=== PATIENT | male | born 1940 | race Caucasian/White ===

== ENCOUNTER 2017-03-15 17:12 | Observation (INO) | payer MEDICARE ==
[2017-03-15 17:44] LABS: BASOPHIL# 0.1 X 10^3uL (0.0-0.1); BASOPHILS 0.9 % (0.0-2.0); EOSINOPHILS 0.9 % (0.0-6.0); EOSINOPHILS# 0.1 X 10^3uL (0.0-0.4); HEMOGLOBIN 15.5 g/dL (14.0-18.0); LYMPHOCYTES# 2.5 X 10^3uL (0.8-3.8); MEAN CELL VOLUME 96.6 fL (80.0-100.0); MEAN CORPUS. HGB CONCENTRATION 34.4 g/dL (32.0-36.0); MEAN CORPUSCULAR HEMOGLOBIN 33.2 pg (29.0-35.0); MEAN PLATELET VOLUME 7.6 fL (7.4-10.4); MONOCYTES 8.8 % (2.0-10.0); MONOCYTES# 0.6 X 10^3uL (0.2-1.0); NEUTROPHILS 55.4 % (54.0-75.0); RED BLOOD COUNT 4.66 X 10^6uL (4.20-6.10); RED CELL DISTRIBUTION WIDTH 12.7 % (11.5-14.5); WHITE BLOOD COUNT 7.3 X 10^3uL (3.9-10.7)
[2017-03-15 17:48] LABS: CALCIUM 9.9 mg/dL (8.4-10.2); POTASSIUM 4.2 mmol/L (3.5-5.1)
[2017-03-15 17:49] LABS: INR 3.3
--- NOTE | 2017-03-15 18:21 | CT REPORT ---
HISTORY: Fall, no LOC COMPARISON: None. TECHNIQUE: Axial non-contrast images obtained from skull vertex through foramen magnum. Dose reduction technique was utilized. FINDINGS: BRAIN: There is age related atrophy. No acute intracranial hemorrhage. No mass effect or hydrocephalus. T here is no CT evidence of infarction. BONES AND EXTRACRANIAL SOFT TISSUES: There has been prior cataract surgery. The paranasal sinuses and mastoid air cells are clear. The ca lvarium is intact. IMPRESSION: 1. No acute intracranial abnormality. 2. Age related atrophy. Final Electronic Signature: This report was electronically signed by Otis Zaragoza MD on 03/15/2017 6:18 PM. all /
--- NOTE | 2017-03-15 18:22 | CT REPORT ---
HISTORY: Trauma, fall COMPARISON: None. TECHNIQUE: This examination was performed using automated exposure control, adjustment of mA or kV according to patient size, and/or use of iterative reconstruction technique. Axial thin section images obtained f rom skull base through head of the clavicles. Sagittal and coronal reformat images obtained. FINDINGS: Craniocervical junction is intact. Mild straightening of the cervical spine. Vertebral body height is preserved. Mild grade 1 anterolisthesis of C3 over C4. Alignment is otherwise preserved. C5-C6 and C 6-C7 disc height loss related to degenerative disc disease. Multilevel facet arthrosis. No high-grade spinal canal stenosis. Mild to moderate multilevel foraminal stenosis. Apical scarring noted in the right lung apex. IMPRESSION: 1. No acute abnormality. 2. Multilevel degenerative changes. Final Electronic Signature: This report was electronically signed by Otis Zaragoza MD on 03/15/2017 6:20 PM. all /
--- NOTE | 2017-03-15 19:15 | RADIOLOGY REPORT ---
A limited single portable view of the chest is compared with prior examination dated 05/08/2016. The heart and vessels are stable. Stable left sided pacemaker is noted. Stable scarring is seen in both lung atwood, right greater than left. No infiltrate, fluid or pneumothorax is identified. IMPRESSION: Stable chronic changes as described. MTDD
--- NOTE | 2017-03-15 19:17 | RADIOLOGY REPORT ---
Four views of the lumbar spine without prior films for comparison demonstrate 50 % anterior compression deformity of L2. No encroachment upon the spinal canal is identified. The remainder of the vertebral body heights are maintained. Disk spaces appear unremarkable. Calcification of the abdominal aorta is noted without aneurysm identified. IMPRESSION: A 50% anterior compression deformity of L2 of indeterminate age. If clinically indicated further evaluation with CT scanning and/or MRI scanning may be of benefit. MTDD
[2017-03-15] MEDS ORDERED: HOME MEDICATION LIST NEEDED 1 EA EACH MISC ONE (20:02)
[2017-03-15] MEDS ORDERED: ACETAMINOPHEN 325 MG TABLET PO PRN (20:02)
[2017-03-15] MEDS ORDERED: ONDANSETRON HCL 4 MG/2 ML VIAL IV PRN (20:07)
[2017-03-15] MEDS ORDERED: NORMAL SALINE 1,000 ML IV SCH (21:00)
--- NOTE | 2017-03-15 21:43 | ER NURSING DOCUMENTATION ---
Nurse's Notes [facility] Name:Juan Pablo Guillermo Age:76 yrs Sex:Male :1940 Arrival Date:03/15/2017 Time:17:12 Bed4 Private MD:Mervat Nava Diagnosis:Lumbar Vertebra Fracture w/o Spinal Cord Injury-: 50% Acute L-2 Vertebral Body Compression Fracture;Closed Head Injury w/o Cranial Wound, Unspec State LOC Presentation: 03/15 17:18 Presenting complaint: Patient states: Fall. Transition of care: Home. lp 17:18 Acuity: RUBIA 3 lp 17:18 Method Of Arrival: Private Vehicle lp Triage Assessment: 17:26 General: Appears in no apparent distress, Behavior is cooperative. Pain: Complains of rh pain in back. EENT: Oral mucosa is dry. Neuro: Level of Consciousness is awake, alert, obeys commands. Cardiovascular: Capillary refill < 3 seconds. Respiratory: Airway is patent Respiratory effort is even, labored, Respiratory pattern is regular, symmetrical, Reports shortness of breath. GI: Abdomen is obese, Abd is soft and non tender Denies diarrhea, nausea, vomiting. : No deficits noted. Derm: Skin is intact, is healthy with good turgor, Skin is pink, warm & dry. Musculoskeletal: Circulation, motion, and sensation intact. Historical: - Allergies: VYTORIN; Crestor; - Home Meds: 1. Potassium Chloride Oral 2. Furosemide Oral 3. Gilpizide 4. Tricor Oral 5. Metformin Oral 6. Warfarin Oral 7. Proair Inhaler - PMHx: HIGH CHOLESTEROL; DIABETES - NIDDM; Bimalleolar Ankle Fracture - : Right / Closed reduction by MD under Anesthesia (May 08, 2016); ALZHEIMERS; OBESITY; - PSHx: PACEMAKER; - Tetanus: < 10 years. - Ebola Screening: : Patient negative for fever greater than or equal to 101.5 degrees Fahrenheit, and additional compatible Ebola Virus Disease symptoms. - Immunization history: Flu Vaccine None. - Social history: Smoking status: Patient states former smoker of tobacco. Screenin:28 Infectious Disease Risk None. Abuse screen: Denies threats or abuse. Denies injuries rh from another. Nutritional screening: No deficits noted. Assessment: 17:28 See Triage Assessment done by same RN. 21:29 Reassessment: EKG DONE ON PATIENT . Vital Signs: 17:25 BP 176 / 84; Pulse 71; Resp 22; Temp 98.0(TE); Pulse Ox 88% on R/A; Weight 104.33 kg; rh Height 5 ft. 10 in. (177.80 cm); Pain 1/10; 17:28 Pulse Ox 96% on 2 lpm NC; rh 18:49 BP 153 / 70; Pulse 72; Resp 20; Pulse Ox 94% on 2 lpm NC; rh 20:02 BP 172 / 63; Pulse 70; Resp 18; Pulse Ox 94% on 2 lpm NC; rh 21:41 BP 166 / 76; Pulse 71; Resp 20; Pulse Ox 94% on 2 lpm NC; rh 17:25 Body Mass Index 33.00 (104.33 kg, 177.80 cm) rh [place] Coma Score: 17:40 Eye Response: spontaneous(4). Verbal Response: confused(4). Motor Response: obeys cd commands(6). Total: 14. ED Course: 17:15 Patient arrived in ED. ds 17:15 Mervat Nava MD is Private Physician. ds 17:18 Triage completed. lp 17:19 Inserted peripheral IV: 20 gauge in left antecubital area and blood collected. rh 17:24 Ning Rao is Primary Nurse. rh 17:25 Oxygen Oxygen administration via nasal cannula @ 2L/min. rh 17:28 Notified ED Physician of patient's arrival and chief complaint. Dr. Sanon notified. rh 17:28 Valuables Remains with patient Patient has correct armband on for positive rh identification. Placed in gown. Bed in low position. Call light in reach. Side rails up X 1. property assessment monitor on. Pulse ox on. NIBP on. 18:20 Fernando Sanon MD is Attending Physician. cd 19:55 Ritesh Llanes MD is Admitting Physician. cd 21:29 EKG done. (by ED staff). Reviewed by Fernando Sanon MD. rh Administered Medications: No medications were administered Outcome: 19:57 Decision to Admit by Provider. cd 21:42 Admitted to Med/surg accompanied by nurse, via stretcher, with chart. rh 21:42 Condition: stable 21:42 Instructed on need to admit 21:43 Patient left the ED. rh Signatures: Teresa Malave RN RN lp Meera Torres, Reg Reg ds Fernando Sanon MD MD cd Hofsess, Rachel
--- NOTE | 2017-03-15 21:43 | ER PHYSICIAN DOCUMENTATION ---
Physician Documentation [facility] Name:Juan Pablo Guillermo Age:76 yrs Sex:Male :1940 Arrival Date:03/15/2017 Time:17:12 Bed4 Private MD:Mervat Nava ED, Chris Disposition: 03/15/17 19:57 Admit ordered for Ritesh Llanes. Preliminary diagnosis are Lumbar Vertebra Fracture w/o Spinal Cord Injury - : 50% Acute L-2 Vertebral Body Compression Fracture, Closed Head Injury w/o Cranial Wound, Unspec State LOC. - Bed requested for Medical/Surgical. - Condition is Improved. - Problem is new. - Symptoms have improved. 23 HR OBS Yes HPI: 03/15 17:20 This 76 yrs old Male presents to ER via Private Vehicle with complaints of cd Back Pain s/p fall. 17:20 The patient presents with pain that is acute. The symptoms are located in the low back, cd L2. Onset: The symptoms/episode began/occurred acutely, just prior to arrival. The pain does not radiate. Associated signs and symptoms: Pertinent positives: headache, Patient's has dementia. His reports he was standing by the car waiting for her to assist him, when he lost his balance, fell backward, struck his head and had no LOC. He is on Coumadin. He complains of mild headache and no neck pain. He complains of low back pain but no radiculopathy, Pertinent negatives: abdominal pain, chest pain, incontinence, numbness, tingling, urinary retention, weakness. Severity of symptoms: At their worst the symptoms were moderate, in the emergency department the symptoms are unchanged. The patient has not experienced similar symptoms in the past. Historical: - Allergies: VYTORIN; Crestor; - Home Meds: 1. Potassium Chloride Oral 2. Furosemide Oral 3. Gilpizide 4. Tricor Oral 5. Metformin Oral 6. Warfarin Oral 7. Proair Inhaler - PMHx: HIGH CHOLESTEROL; DIABETES - NIDDM; Bimalleolar Ankle Fracture - : Right / Closed reduction by MD under Anesthesia (May 08, 2016); ALZHEIMERS; OBESITY; - PSHx: PACEMAKER; - Tetanus: < 10 years. - Ebola Screening: : Patient negative for fever greater than or equal to 101.5 degrees Fahrenheit, and additional compatible Ebola Virus Disease symptoms. - Immunization history: Flu Vaccine None. - Social history: Smoking status: Patient states former smoker of tobacco. ROS: 17:30 Eyes: Negative for injury, pain, redness, discharge, blurry vision and loss of vision. cd ENT: Negative for injury, pain, epistaxis and discharge. Neck: Negative for injury, pain, stiffness and swelling. Cardiovascular: Negative for chest pain, palpitations, edema and pleuritic pain. Respiratory: Negative for shortness of breath, dyspnea on exertion, cough, sputum production, wheezing, hemoptysis and pleuritic chest pain. Abdomen/GI: Negative for abdominal pain, nausea, vomiting, diarrhea, constipation, distension, melena, hematochezia and hematemesis. : Negative for injury, bleeding, discharge, swelling, dysuria, frequency or urgency. MS/Extremity: Negative for injury, deformity, edema, calf tenderness, pain or coldness. 17:30 Skin: Negative for injury, rash, itching and discoloration. cd 17:30 Constitutional: Negative for chills, fever, poor PO intake. 17:30 Back: Positive for decreased range of motion, pain at rest, pain with movement, of the lumbar area, Negative for radiated pain. 17:30 Neuro: Positive for headache, Negative for altered mental status, loss of consciousness, seizure activity, speech changes, syncope, near syncope, weakness, acute changes. 17:30 All other systems are negative. Exam: Head/Face: Normocephalic, atraumatic. Eyes: Pupils equal round and reactive to light, extra-ocular motions intact. Lids and lashes normal. Conjunctiva and sclera are non-icteric and not injected. Cornea within normal limits. Periorbital areas with no swelling, redness, or edema. ENT: Nares patent. No nasal discharge, no septal abnormalities noted. Tympanic membranes are normal and external auditory canals are clear. Oropharynx with no redness, swelling, or masses, exudates, or evidence of obstruction, uvula midline. Mucous membranes moist. Neck: Trachea midline, no thyromegaly or masses palpated, and no cervical lymphadenopathy. Supple, full range of motion without nuchal rigidity, or vertebral point tenderness. No Meningismus. Chest/axilla: Normal chest wall appearance and motion. Nontender with no deformity. No lesions are appreciated. Cardiovascular: Regular rate and rhythm with a normal S1 and S2. No gallops, murmurs, or rubs. Normal PMI, no JVD. No pulse deficits. Respiratory: Lungs have equal breath sounds bilaterally, clear to auscultation and percussion. No rales, rhonchi or wheezes noted. No increased work of breathing, no retractions or nasal flaring. Skin: Warm, dry with normal turgor. Normal color with no rashes, no lesions, and no evidence of cellulitis. 17:40 MS/ Extremity: Pulses equal, no cyanosis. Neurovascular intact. Full, normal range cd of motion. 17:40 Constitutional: The patient appears alert, awake, non-diaphoretic, non-toxic, well developed, well nourished, anxious, obese, in obvious distress, moderately distressed. 17:40 Abdomen/GI: Inspection: abdomen appears normal, Bowel sounds: normal, Palpation: abdomen is soft and non-tender, Rectal exam: the exam is deferred. 17:40 Back: pain, that is moderate, of the lumbar area, ROM is painful, with all movement, normal spinal alignment noted, CVA tenderness, is absent, vertebral tenderness, is appreciated at L2 and L3, muscle spasm, is not present. 17:40 : Rectal exam: is not applicable. 17:40 Neuro: Orientation: is normal, for patient, Mentation: lucid, Cranial nerves: CN II- XII are normal as tested, Motor: moves all fours, Sensation: is normal, Gait: not tested. Deep tendon reflexes are normal. Vital Signs: 17:25 BP 176 / 84; Pulse 71; Resp 22; Temp 98.0(TE); Pulse Ox 88% on R/A; Weight 104.33 kg; rh Height 5 ft. 10 in. (177.80 cm); Pain 1/10; 17:28 Pulse Ox 96% on 2 lpm NC; rh 18:49 BP 153 / 70; Pulse 72; Resp 20; Pulse Ox 94% on 2 lpm NC; rh 20:02 BP 172 / 63; Pulse 70; Resp 18; Pulse Ox 94% on 2 lpm NC; rh 21:41 BP 166 / 76; Pulse 71; Resp 20; Pulse Ox 94% on 2 lpm NC; rh 17:25 Body Mass Index 33.00 (104.33 kg, 177.80 cm) rh [place] Coma Score: 17:40 Eye Response: spontaneous(4). Verbal Response: confused(4). Motor Response: obeys cd commands(6). Total: 14. MDM: 17:28 Patient medically screened. 17:30 Data interpreted: Pulse oximetry: on room air is 94 %. Interpretation: normal. cd Counseling: I had a detailed discussion with the patient and/or guardian regarding: the historical points, exam findings, and any diagnostic results supporting the discharge/admit diagnosis, lab results, radiology results, the need for further work-up and treatment in the hospital. 18:00 Differential diagnosis: Fracture Ligament Injury ruptured disc, spinal injury, sprain, cd vertebral fracture. 19:57 Physician consultation: Ritesh Llanes MD was called at 19:50, was contacted at cd 19:55, regarding admission, to the floor, consult, patient's condition, need to evaluate the patient as soon as possible, and will see patient in inpatient room, shortly, later today. Admission orders: after a detailed discussion of the patient's condition and case, the admit orders are written by me. 20:00 Data reviewed: vital signs, nurses notes, EMS record, old medical records, lab test cd result(s), radiologic studies, and as a result, I will admit patient, initiate a consult, from a Dr, TOBIW, FP Community Call Physician. 03/15 17:48 Order name: CBC AUTO DIF, MDIF/RMOR IF IND; Complete Time: 18:21 EDNJ 03/15 18:21 Interpretation: Normal. 03/15 17:49 Order name: BASIC METABOLIC PANEL; Complete Time: 18:21 EDNJ 03/15 18:21 Interpretation: Normal Except: GLUCOSE 165; Hyperglycemia. 03/15 17:50 Order name: PROTIME/INR; Complete Time: 18:21 EDNJ 03/15 18:21 Interpretation: Abnormal: INR 3.3; Elevated INR / On Coumadin. 03/16 07:25 Order name: PROTIME/INR; Complete Time: 19:05 EDNJ 03/16 07:26 Order name: CBC AUTO DIF, MDIF/RMOR IF IND; Complete Time: 19:05 [facility] 03/17 19:02 Interpretation: Normal Except: WHITE BLOOD COUNT 10.8; NEUTROPHILS 75.8. 03/16 07:30 Order name: BASIC METABOLIC PANEL; Complete Time: 19:05 EDMS 03/17 Interpretation: Normal Except: GLUCOSE 129; Hyperglycemia. 03/17 06:32 Order name: INR W/ CAPI DRAW; Complete Time: 19:05 EDMS 03/17 19:03 Interpretation: Abnormal. 03/15 18:23 Order name: CAT SCAN; HEAD W/O CON [id number]; Complete Time: 19:54 EDMS 03/15 19:53 Interpretation: Normal Except: Radiologist Report reviewed. 03/15 18:23 Order name: CAT SCAN; CERVICAL W/[id number]; Complete Time: 19:54 EDMS 03/15 19:54 Interpretation: Normal Except: Radiologist Report reviewed. 03/15 20:34 Order name: CHEST; SINGLE VIEW [id number]; Complete Time: 19:05 EDMS 03/17 19:04 Interpretation: Normal Except: Stable chronic changes. 03/15 20:34 Order name: LUMBOSACRAL SPINE 2-3 VW [id number]; Complete Time: 19:05 EDNJ 03/17 19:05 Interpretation: Abnormal: 50% L-2 Vertebral Body Compression Fracture, No old films for comparison. 03/15 17:31 Order name: Iv Saline Lock; Complete Time: 17:31 03/15 17:31 Order name: Oxygen; Complete Time: 17:31 03/15 17:31 Order name: Cardiac Monitoring - Continuous; Complete Time: 17:31 rh Dispensed Medications: No medications were administered Signatures: Fernando Sanon MD MD Ning Rao
[2017-03-15] MEDS ORDERED: DEXTROSE 50% WATER 25 GM/50 ML SYR IV PRN (22:00)
[2017-03-15] MEDS: traMADol HCL 50 MG TABLET PO PRN (22:55)
[2017-03-15] MEDS: CYCLOBENZAPRINE HCL 10 MG TABLET PO SCH (23:22)
[2017-03-16 07:12] LABS: BASOPHILS 0.4 % (0.0-2.0); EOSINOPHILS 0.2 % (0.0-6.0); HEMATOCRIT 43.5 % (42.0-54.0); HEMOGLOBIN 14.8 g/dL (14.0-18.0); LYMPHOCYTES 13.6 % (20.0-40.0); LYMPHOCYTES# 1.5 X 10^3uL (0.8-3.8); MEAN CELL VOLUME 96.2 fL (80.0-100.0); MEAN CORPUSCULAR HEMOGLOBIN 32.7 pg (29.0-35.0); MEAN PLATELET VOLUME 7.8 fL (7.4-10.4); MONOCYTES# 1.1 X 10^3uL (0.2-1.0); NEUTROPHILS 75.8 % (54.0-75.0); NEUTROPHILS# 8.2 X 10^3uL (2.6-6.7); PLATELET COUNT 212 X 10^3uL (130-440); RED BLOOD COUNT 4.52 X 10^6uL (4.20-6.10); RED CELL DISTRIBUTION WIDTH 13.3 % (11.5-14.5); WHITE BLOOD COUNT 10.8 X 10^3uL (3.9-10.7)
[2017-03-16 07:22] LABS: BLOOD UREA NITROGEN 15 mg/dL (9-20); CALCIUM 9.3 mg/dL (8.4-10.2); CHLORIDE 108 mmol/L (98-107); EST GLOMERULAR FILTRATION RATE > 60 mL/min; GLUCOSE 129 mg/dL (70-100); SODIUM 142 mmol/L (137-145)
[2017-03-16 07:23] LABS: INR 2.9
[2017-03-16] MEDS: INSULIN LISPRO 100 UNIT/ML ML SUBCUT SCH ×5 (07:34→21:25)
[2017-03-16] MEDS: traMADol HCL 50 MG TABLET PO PRN (07:47)
--- NOTE | 2017-03-16 07:47 | HISTORY & PHYSICAL ---
DATE OF ADMISSION: 03/15/17 ATTENDING PHYSICIAN: Ritesh Llanes MD CHIEF COMPLAINT: Status post fall. HISTORY OF PRESENT ILLNESS: Patient is a 76-year-old male who states that he had a fall today, where he fell forwards for unclear reasons and landed on his chest. This happened at home. He has underlying Alzheimers with very poor recall. No loss of consciousness. No head, neck or upper back injury or chest injury. He primarily complains of low back pain without radiculopathy. No numbness or weakness. He states that he has no previous back problems. Emergency Room workup revealed an acute new anterior wedge 50% L2 vertebral compression fracture. He is now admitted for pain control and initiation of physical therapy and related modalities. Note that patient is a poor historian and await medical records from [facility]. ALLERGIES: Vytorin, Crestor, Percocet (pruritus). MEDICATIONS: Unclear. Patient reports that he is on the following. Furosemide 1 tablet daily. KCL 1 tablet daily. Glipizide 1 tablet daily. Metformin 1 tablet 4 times per day. Tricor 1 tablet daily. Warfarin 1 tablet daily. ProAir inhaler on a PRN basis. I reviewed his medications from his 01/2015 admission, it appears that his medications have dramatically changed since then. Will obtain [facility] tomorrow to obtain a current medication list. PAST MEDICAL HISTORY 1. Hypertension. 2. Hyperlipidemia. 3. Type 2 diabetes mellitus. 4. Obesity. 5. Atrial fibrillation. 6. Kidney stones. 7. Alzheimers dementia. 8. Right ankle fracture, status post open reduction, internal fixation, 2016. 9. Pacemaker 2014. SOCIAL HISTORY: , 1 child. Retired. 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 No alcohol. Quit smoking 30 years ago. FAMILY HISTORY: Father with emphysema. Sister of small cell lung cancer. Grandmother at 104 of old age. REVIEW OF SYSTEMS: No chest pain, chest pressure, chest tightness or other anginal symptoms. No lung, kidney, liver, thyroid, seizures, peptic ulcer disease, skin, allergy or bleeding disorders. No urinary problems. PREVENTATIVE HEALTH: Patient declines Pneumovax, Prevnar, flu shots or other preventive health care measures. PHYSICAL EXAMINATION VITAL SIGNS: Blood pressure 176/84, pulse 71, respiratory rate 22, temperature 98.0. Room air pulse oxygen 88%. By the time the patient was admitted, blood pressure dropped down to 166/76, pulse oxygen 94% on oxygen at 2 liters per minute. GENERAL: Well-developed, well-nourished elderly overweight male, NAD, alert but orientation is not clear. HEENT: EOMI. Pupils are equally round. Normal conjunctivae. No coryza. Pharynx not injected. Head atraumatic/normocephalic. NECK: No lymphadenopathy. No thyromegaly. No carotid bruits. No cervical spine or paracervical muscle tenderness. CHEST: Clear. No rales, rhonchi or wheezes. Good breath sounds and symmetry throughout. COR: RRR without murmurs, gallops, rubs or clicks. No jugular venous distention. No ectopy. ABDOMEN: Soft, nontender. No hepatosplenomegaly. No masses. No bruits. No inguinal nodes. Bowel sounds present. BACK: No thoracic or lumbar spine tenderness or parathoracic or paralumbar muscle tenderness on palpation. No SI joint or sciatic region tenderness. LOWER EXTREMITIES: No edema. Peripheral pulses present. NEUROLOGIC: Cranial nerves 2-12 intact. Motor 5/5 in the upper and lower extremities. Sensory intact throughout. Bilateral patellar reflexes 1-2+ and symmetric. Patient was lying on his side and did not want to move secondary to low back pain. X-RAY: Lumbar spine x-ray shows a 50% anterior wedge L2 compression fracture. Chest x-ray shows pulmonary changes, but apparently unchanged from previous. Cervical spine CT showed multi-level degenerative disk disease in particular C5- C7, but no acute abnormality. Head CT scan showed brain atrophy but no acute pathology. LABORATORY DATA: White blood cell count 7.3, hemoglobin and hematocrit 15.5/45.0 , platelets 245,000, INR 3.3. Sodium 140, potassium 4.2, chloride 106, CO2 23, BUN 24, creatinine 1.3, glucose 165, calcium 9.9. ASSESSMENT 1. Status post fall. 2. L2 compression fracture with associated intractable pain. 3. Hypertension. 4. Hyperlipidemia. 5. Atrial fibrillation on Warfarin. 6. Diabetes mellitus, type 2. 7. Alzheimers. PLAN 1. Tramadol 50 mg 1-2 tabs p.o. q.6 hours PRN pain. 2. Acetaminophen 650 mg p.o. q.6 hours PRN pain. 3. Cyclobenzaprine 5 mg p.o. t.i.d. 4. Ice PRN. 5. Physical therapy. 6. Contact [facility] tomorrow to obtain current list of medications. 7. Glucosan q.a.c. and q.h.s. with insulin sliding scale for now. 8. Gentle IV hydration. 9. Confirmed DNR status with patient. Copies to: Dr. Elijah LOREDO
[2017-03-16] MEDS ORDERED: metFORMIN ER 500 MG TABLET PO SCH (09:00)
[2017-03-16] MEDS: CYCLOBENZAPRINE HCL 10 MG TABLET PO SCH (09:10)
[2017-03-16] MEDS: TAMSULOSIN HCL 0.4 MG CAPSULE PO SCH (09:54)
[2017-03-16] MEDS: AMLODIPINE BESYLATE 5 MG TABLET PO SCH (09:54)
[2017-03-16] MEDS: GLIPIZIDE 5 MG TABLET PO SCH (09:54)
[2017-03-16] MEDS ORDERED: WARFARIN SODIUM 2 MG TABLET PO ONE (10:03)
[2017-03-16] MEDS: WARFARIN SODIUM 2 MG TABLET PO SCH ×2 (10:16→16:41)
[2017-03-16] MEDS: KETOROLAC TROMETHAMINE 30 MG/ML VIAL IV PRN (10:21)
--- NOTE | 2017-03-16 10:32 | PROGRESS NOTE: IM APSO ---
Assessment and Plan - Date of Encounter Date of Encounter: 03/16/17 (1) Fall at home Status: Acute Current Visit: Yes (2) Compression fracture Status: Acute Assessment and plan: pain management and mobilization! Discharge planning is crucial; with recurrent breast CA has surgery in 10 days. Current Visit: Yes (3) Afib Status: Chronic Current Visit: No (4) BPH (benign prostatic hyperplasia) Status: Chronic Current Visit: No (5) COPD (chronic obstructive pulmonary disease) Status: Chronic Current Visit: No (6) DM type 2 (diabetes mellitus, type 2) Status: Chronic Current Visit: No (7) HTN (hypertension) Status: Chronic Current Visit: No - Time Spent With Patient Total time spent with greater than 50% in coordination of care (as documented) at patient's floor/unit and/or counseling patient: IM: PN Subjective General: fatigue, pain (improved with toradol and flexeril apparently) Cardiovascular: no chest pain Respiratory: no SOB (subjectively he pants with activity, but his POx is fine) IM: PN Objective Exam - I&O/Vital Signs I&O: Intake & Output 03/15/17 03/16/17 03/16/17 21:59 05:59 13:59 Intake Total 485 Output Total 500 Balance -15 Weight 98.5 kg 100 kg Intake: IV 335 Left Antecubital 335 Oral 150 Output: Urine 500 Other: Urine Appearance Clear Urine Color Straw Voiding Method Urinal Vital Signs: Last Vital Signs Temp 36.5 C 03/16/17 07:00 Pulse 71 03/16/17 07:00 Resp 18 03/16/17 07:00 BP 166/77 03/16/17 07:00 Pulse Ox 90 03/16/17 08:43 Oxygen Flow Rate 2 Oxygen Delivery Method Room Air - Constitutional General appearance: Present: disheveled, obese. Absent: acute distress - Eye Eye exam: Present: EOMI - ENT ENT exam: Present: other (mouth breather, somewhat inarticulate speech is baseline) - Respiratory Respiratory exam: Present: clear. Absent: respiratory distress, wheezes - Cardiovascular Cardiovascular exam: Present: RRR - GI/Abdominal GI/Abdominal exam: Present: distended, soft - Extremities Exam Extremities exam: Absent: edema - Psychiatric Psychiatric exam: Present: normal affect (Can relate to me his 's health issues, knows he fell becasue not using walker, but baseline dementia evident) - Lab Labs: Laboratory Last Values WBC 10.8 X 10^3uL (3.9-10.7) H 03/16/17 06:20 RBC 4.52 X 10^6uL (4.20-6.10) 03/16/17 06:20 Hgb 14.8 g/dL (14.0-18.0) 03/16/17 06:20 Hct 43.5 % (42.0-54.0) 03/16/17 06:20 MCV 96.2 fL (80.0-100.0) 03/16/17 06:20 MCH 32.7 pg (29.0-35.0) 03/16/17 06:20 MCHC 34.0 g/dL (32.0-36.0) 03/16/17 06:20 RDW 13.3 % (11.5-14.5) 03/16/17 06:20 Plt Count 212 X 10^3uL (130-440) 03/16/17 06:20 MPV 7.8 fL (7.4-10.4) 03/16/17 06:20 Neutrophils % 75.8 % (54.0-75.0) H 03/16/17 06:20 Lymphocytes % 13.6 % (20.0-40.0) L 03/16/17 06:20 Eosinophils % 0.2 % (0.0-6.0) 03/16/17 06:20 Basophils % 0.4 % (0.0-2.0) 03/16/17 06:20 Neutrophils # 8.2 X 10^3uL (2.6-6.7) H 03/16/17 06:20 Lymphocytes # 1.5 X 10^3uL (0.8-3.8) 03/16/17 06:20 Monocytes 10.0 % (2.0-10.0) 03/16/17 06:20 Monocytes # 1.1 X 10^3uL (0.2-1.0) H 03/16/17 06:20 Eosinophils # 0.0 X 10^3uL (0.0-0.4) 03/16/17 06:20 Basophils # 0.0 X 10^3uL (0.0-0.1) 03/16/17 06:20 PT 44.2 sec (13.0-16.6) H 03/16/17 06:20 INR 2.9 03/16/17 06:20 Sodium 142 mmol/L (137-145) 03/16/17 06:20 Potassium 4.0 mmol/L (3.5-5.1) 03/16/17 06:20 Chloride 108 mmol/L (98-107) H 03/16/17 06:20 Carbon Dioxide 25 mmol/L (22-30) 03/16/17 06:20 BUN 15 mg/dL (9-20) 03/16/17 06:20 Creatinine 1.0 mg/dL (0.7-1.3) 03/16/17 06:20 GFR Calculation > 60 mL/min 03/16/17 06:20 Glucose 129 mg/dL (70-100) H 03/16/17 06:20 Calcium 9.3 mg/dL (8.4-10.2) 03/16/17 06:20 Quality Questions - VTE Prophylaxis Assessment VTE Present on Admission?: No Patient at risk for venous thromboembolism?: Yes VTE Risk Level: Moderate Risk Pharmaceutical VTE prophylaxis contraindication reason: N/A- VTE prophylaxsis ordered Mechanical VTE prophylaxis contraindication reason: N/A- VTE prophylaxsis ordered (3) Afib Qualifiers: (6) DM type 2 (diabetes mellitus, type 2) Qualifiers: Diabetes mellitus complication status: without complication Diabetes mellitus residential insulin use: without petroleum terminal plant operator use Qualified Code(s): E11.9 - Type 2 diabetes mellitus without complications (7) HTN (hypertension) Qualifiers:
[2017-03-16] MEDS: metFORMIN ER 500 MG TABLET PO SCH ×3 (11:30→21:28)
[2017-03-16] MEDS ORDERED: FENOFIBRATE 145 MG TABLET PO SCH (21:00)
[2017-03-16] MEDS ORDERED: LOSARTAN POTASSIUM 50 MG TABLET PO SCH (21:00)
[2017-03-16] MEDS ORDERED: IPRATROPIUM/ALBUTEROL 0.5/3 MG 3 ML AMPUL.NEB INHALATION PRN (22:34)
[2017-03-17] MEDS: CYCLOBENZAPRINE HCL 10 MG TABLET PO SCH (03:28)
[2017-03-17] MEDS: KETOROLAC TROMETHAMINE 30 MG/ML VIAL IV PRN (03:53)
[2017-03-17] MEDS: INSULIN LISPRO 100 UNIT/ML ML SUBCUT SCH (07:42)
[2017-03-17] MEDS: GLIPIZIDE 5 MG TABLET PO SCH (08:22)
[2017-03-17] MEDS: AMLODIPINE BESYLATE 5 MG TABLET PO SCH (08:23)
[2017-03-17] MEDS: TAMSULOSIN HCL 0.4 MG CAPSULE PO SCH (08:23)
[2017-03-17] MEDS: metFORMIN ER 500 MG TABLET PO SCH ×2 (08:23→11:38)
--- NOTE | 2017-03-17 09:33 | DC SUMMARY: IM Note ---
Discharge Summary: IM/Peds Provider: Date of Admission: 03/15/17 Admitting Provider: ESTELA RODRIGUEZ MD Attending Provider: DONNY GLOVER MD Discharging Provider: DONNY GLOVER MD Primary Care Provider: Discharge Date: 03/17/17 - Diagnosis (1) Fall at home Status: Acute (2) Compression fracture Status: Acute (3) Afib Status: Chronic Qualifiers: (4) BPH (benign prostatic hyperplasia) Status: Chronic (5) COPD (chronic obstructive pulmonary disease) Status: Chronic (6) DM type 2 (diabetes mellitus, type 2) Status: Chronic Qualifiers: Diabetes mellitus complication status: without complication Diabetes mellitus mcfp insulin use: without mcfp use Qualified Code(s): E11.9 - Type 2 diabetes mellitus without complications (7) HTN (hypertension) Status: Chronic Qualifiers: Hospital Course: Pt is very high risk for falls; has balance issues and dementia, refuses to use walker or listen to his at home re: safety issues (or anything else!) He tripped and fell at home 03/15 with small L2 compression fracture. He is working well with PT and making progress, will go to [facility] today for ongoing rehab. His chronic medical issues are thankfully easy to control and stable. - Time Spent with Patient Total time spent providing and/or coordinating discharge services: Time with patient DS: Less than 30 minutes Discharge - Patient/Caregiver Discharge Instructions Activity Level: Walk with walker and assistance! Be safe. Diet: diabetic Follow up: DONNY GLOVER MD [Primary Care Provider] - 7 Days Overall discharge status: patient is progressing back to baseline Home Medications: Hydrocodone/Acetaminophen [Alpha 5-325 Tablet] 1 tab PO TID PRN #90 tab PRN Reason: Pain, Breakthrough Disposition: [facility] Discharge Summary Data - Medication History Medication History: Home Medications Amlodipine Besylate [Norvasc*] 5 mg PO DAILY 03/16/17 Fenofibrate [Tricor] 145 mg PO DAILY 03/16/17 Furosemide [Lasix*] 20 mg PO DAILY 03/16/17 Glipizide [Glipizide ER] 5 mg PO DAILY 03/16/17 Losartan Potassium [Cozaar*] 100 mg PO DAILY 03/16/17 Pantoprazole [Pantoprazole Sodium*] 40 mg PO DAILY 03/16/17 Saw [place] 1,000 mg PO DAILY 03/16/17 Sitagliptin [Januvia*] 100 mg PO DAILY 03/16/17 Warfarin Sodium [Coumadin] 3 mg PO DAILY 03/16/17 metFORMIN ER [Metformin HCl ER*] 500 mg PO QID 03/16/17 Hydrocodone/Acetaminophen [Alpha 5-325 Tablet] 1 tab PO TID PRN #90 tab Inpatient Medications 03/15/17 22:00 Dextrose 50% Water [D50%] 50 gm IV PRN PRN 03/16/17 08:55 hydroCODone/APAP 5/325 MG [Alpha] 1 - 2 tab PO Q4H PRN 03/16/17 09:00 Amlodipine Besylate [Norvasc] 5 mg PO DAILY Glipizide [Glucotrol] 5 mg PO DAILY Tamsulosin HCl [Flomax] 0.4 mg PO DAILY Warfarin Sodium [Coumadin] 2 mg PO DAILY@1600 metoprolol TARTRATE [Lopressor] 25 mg PO BID 03/16/17 09:53 Ketorolac Tromethamine [Toradol] 15 mg IV Q6H PRN 03/16/17 11:30 Insulin Lispro [HumaLOG] 0 unit SUBCUT ACHS metFORMIN ER [Glucophage Xr] 500 mg PO ACHS 03/16/17 21:00 Fenofibrate [Tricor] 145 mg PO HS Losartan Potassium [Cozaar] 100 mg PO HS 03/16/17 22:34 Ipratropium/Albuterol 0.5/3 mg [Duoneb 2.5-0.5 mg/3 ml Soln] 3 ml INHALATION Q4H PRN 03/17/17 09:22 Furosemide [Lasix] 20 mg PO ONCE ONE 03/17/17 13:00 metFORMIN ER [Glucophage Xr] 500 mg PO QID 03/18/17 09:00 Fenofibrate [Tricor] 145 mg PO DAILY Glipizide [Glipizide ER] 5 mg PO DAILY Losartan Potassium [Cozaar] 100 mg PO DAILY Pantoprazole [Protonix] 40 mg PO DAILY Saw Oktaha [Saw Oktaha] 1,000 mg PO DAILY Sitagliptin [Januvia] 100 mg PO DAILY Warfarin Sodium [Coumadin] 3 mg PO DAILY Procedures and tests throughout hospitalization: Completed Lab Orders 03/17/17 06:10 INR W/ CAPI DRAW [HEM] AMDRAW Pending Orders 03/15/17 20:02 Resuscitation Status Routine 03/15/17 21:59 Miscellaneous Care Order . 03/15/17 22:00 Finger Stick Blood Sugar ACHS FINGER STICK Hypoglycemia treatment... PER PROTOCOL Notify Physician . Dextrose 50% Water [D50%] 50 gm IV PRN PRN 03/15/17 22:17 Apply ice to affected area . 03/15/17 22:39 Physical Therapy Eval and Treatment [PT] Routine 03/16/17 08:55 hydroCODone/APAP 5/325 MG [Alpha] 1 - 2 tab PO Q4H PRN 03/16/17 09:00 Amlodipine Besylate [Norvasc] 5 mg PO DAILY Glipizide [Glucotrol] 5 mg PO DAILY Tamsulosin HCl [Flomax] 0.4 mg PO DAILY Warfarin Sodium [Coumadin] 2 mg PO DAILY@1600 metoprolol TARTRATE [Lopressor] 25 mg PO BID 03/16/17 09:53 Ketorolac Tromethamine [Toradol] 15 mg IV Q6H PRN 03/16/17 10:27 Activity: Ambulate with Assist TID 03/16/17 11:30 Insulin Lispro [HumaLOG] 0 unit SUBCUT ACHS metFORMIN ER [Glucophage Xr] 500 mg PO ACHS 03/16/17 21:00 Fenofibrate [Tricor] 145 mg PO HS Losartan Potassium [Cozaar] 100 mg PO HS 03/16/17 22:34 Ipratropium/Albuterol 0.5/3 mg [Duoneb 2.5-0.5 mg/3 ml Soln] 3 ml INHALATION Q4H PRN 03/17/17 09:22 Furosemide [Lasix] 20 mg PO ONCE ONE 03/17/17 13:00 metFORMIN ER [Glucophage Xr] 500 mg PO QID 03/18/17 09:00 Fenofibrate [Tricor] 145 mg PO DAILY Glipizide [Glipizide ER] 5 mg PO DAILY Losartan Potassium [Cozaar] 100 mg PO DAILY Pantoprazole [Protonix] 40 mg PO DAILY Saw [place]ha [Saw Oktaha] 1,000 mg PO DAILY Sitagliptin [Januvia] 100 mg PO DAILY Warfarin Sodium [Coumadin] 3 mg PO DAILY Labs on day of discharge: Labs from last 24 hours 03/17/17 06:10 Capillary INR 3.1 H IM: Discharge Physical Exam - I&O/Vital Signs I&O: Intake & Output 03/16/17 03/17/17 03/17/17 21:59 05:59 13:59 Intake Total 730 150 Output Total 300 275 Balance 430 -125 Weight 101.5 kg Intake: Oral 730 150 Output: Urine 300 275 Other: Urine Appearance Clear Clear Urine Color Yellow Straw Voiding Method Urinal Urinal # Voids 1 Vital Signs: Last Vital Signs Temp 36.7 C 03/17/17 07:00 Pulse 70 03/17/17 07:00 Resp 14 03/17/17 07:00 BP 106/59 03/17/17 07:00 Pulse Ox 91 03/17/17 07:00 Oxygen Flow Rate 0.5 Oxygen Delivery Method Nasal Cannula - Constitutional General appearance: Present: disheveled, obese. Absent: acute distress - Eye Eye exam: Present: EOMI - ENT ENT exam: Present: other (mouth breather, somewhat inarticulate speech is baseline) - Respiratory Respiratory exam: Present: clear. Absent: respiratory distress, wheezes - Cardiovascular Cardiovascular exam: Present: RRR - GI/Abdominal GI/Abdominal exam: Present: distended, soft - Extremities Exam Extremities exam: Absent: edema - Psychiatric Psychiatric exam: Present: normal affect (at baseline, mouth breathing, dementia , pleasant, fairly oriented this AM) - Allied Health Notes Allied health notes reviewed: case management, nursing, PT
[2017-03-17] MEDS ORDERED: FUROSEMIDE 20 MG TABLET PO SCH (10:00)
[2017-03-17] MEDS ORDERED: metFORMIN ER 500 MG TABLET PO SCH (13:00)
[2017-03-17] MEDS ORDERED: WARFARIN SODIUM 2 MG TABLET PO ONE ×2 (14:00→16:38)
[2017-03-17 15:50] VITALS: BP 112/62; PULSE 73; RESP 16; TEMP 98.1; O2SAT 96
[2017-03-17] MEDS ORDERED: WARFARIN SODIUM 2 MG TABLET PO SCH (16:00)
[2017-03-18] MEDS ORDERED: FENOFIBRATE 145 MG TABLET PO SCH (09:00)
[2017-03-18] MEDS ORDERED: PANTOPRAZOLE 40 MG TABLET PO SCH (09:00)
[2017-03-18] MEDS ORDERED: GLIPIZIDE 5 MG PO SCH (09:00)
[2017-03-18] MEDS ORDERED: NON-FORMULARY MEDICATION (Warfarin Sodium [Coumadin] 3 MG) PO SCH (09:00)
[2017-03-18] MEDS ORDERED: SAW PALMETTO 1000 MG PO SCH (09:00)
[2017-03-18] MEDS ORDERED: LOSARTAN POTASSIUM 50 MG TABLET PO SCH (09:00)
[2017-03-18] MEDS ORDERED: SITAGLIPTIN 100 MG TABLET PO SCH (09:00)
== END 2017-03-17 09:35 ==
LOC: ER 17:12 → IN 21:31
PROVIDERS: ADMIT Family Medicine; ATTEND Family Medicine
DX: S32.020A Wedge compression fracture of second lumbar vertebra, initial encounter for closed fracture (principal); S09.8XXA Other specified injuries of head, initial encounter; W01.0XXA Fall on same level from slipping, tripping and stumbling without subsequent striking against object, initial encounter; G30.9 Alzheimer's disease, unspecified; I48.2 Chronic atrial fibrillation; F02.80 Dementia in other diseases classified elsewhere, unspecified severity, without behavioral disturbance, psychotic disturbance, mood disturbance, and anxiety; J44.9 Chronic obstructive pulmonary disease, unspecified; N40.0 Benign prostatic hyperplasia without lower urinary tract symptoms; E11.9 Type 2 diabetes mellitus without complications; I10 Essential (primary) hypertension; Z95.0 Presence of cardiac pacemaker; Z79.01 Long term (current) use of anticoagulants; Z79.899 Other long term (current) drug therapy
CPT/HCPCS: 36415; 70450; 71010; 72100; 72125; 80048; 85025; 85610; 93005; 93041; 96361; 96374; 96376; 99285; G0378; J1885; J7030; J7620

== ENCOUNTER 2017-03-17 16:00 | Inpatient (IN) | payer MEDICARE ==
[2017-03-23 11:09] LABS: NIL (NEG) CONTROL SPOT COUNT 0; PANEL A SPOT COUNT 0; PANEL B SPOT COUNT 0
[2017-03-23 11:10] LABS: TSPOT TEST NEGATIVE
== END 2017-03-19 | disposition still patient (30) | DRG 561 ==
LOC: PPLC 16:00
PROVIDERS: ADMIT Family Medicine; ATTEND Family Medicine
DX: S32.020D Wedge compression fracture of second lumbar vertebra, subsequent encounter for fracture with routine healing (principal); G30.9 Alzheimer's disease, unspecified; R29.6 Repeated falls; I48.2 Chronic atrial fibrillation; F02.80 Dementia in other diseases classified elsewhere, unspecified severity, without behavioral disturbance, psychotic disturbance, mood disturbance, and anxiety; J44.9 Chronic obstructive pulmonary disease, unspecified; N40.0 Benign prostatic hyperplasia without lower urinary tract symptoms; E11.9 Type 2 diabetes mellitus without complications; I10 Essential (primary) hypertension; Z95.0 Presence of cardiac pacemaker; Z79.01 Long term (current) use of anticoagulants; Z79.899 Other long term (current) drug therapy
CPT/HCPCS: 82040; 86481

== ENCOUNTER 2017-03-18 12:32 | Emergency (ER) | payer MEDICARE ==
--- NOTE | 2017-03-18 13:32 | ER NURSING DOCUMENTATION ---
Nurse's Notes [facility] Name:Juan Pablo Guillermo Age:76 yrs Sex:Male :1940 Arrival Date:03/18/2017 Time:12:32 Bed1 Private MD:Mervat Nava Diagnosis:Open Wound of Nose Presentation: 03/18 12:39 Presenting complaint: Patient states: fell striking nose on wheelchair. Transition of co1 care: [facility]. 12:39 Method Of Arrival: Private Vehicle sc1 12:39 Acuity: RUBIA 3 sc1 Triage Assessment: 12:41 General: Appears in no apparent distress, well developed, well nourished, well groomed, sc1 Behavior is cooperative, pleasant. Pain: Complains of pain in nose. Historical: - Allergies: VYTORIN; Crestor; Percocet; Simvastatin; - Home Meds: 1. Potassium Chloride Oral 2. Furosemide Oral 3. Tricor Oral 4. Metformin Oral 5. Warfarin Oral - PMHx: HIGH CHOLESTEROL; DIABETES - NIDDM; Bimalleolar Ankle Fracture - : Right / Closed reduction by MD under Anesthesia (May 08, 2016); ALZHEIMERS; OBESITY; Lumbar Vertebra Fracture w/o Spinal Cord Injury - : 50% Acute L-2 Vertebral Body Compression Fracture (March 15, 2017); - PSHx: PACEMAKER; - Tetanus: refused today. - Ebola Screening: : Patient negative for fever greater than or equal to 101.5 degrees Fahrenheit, and additional compatible Ebola Virus Disease symptoms. Patient denies exposure to infectious person. Patient denies travel to an Ebola-affected area in the 21 days before illness onset. No symptoms or risks identified at this time. . - Immunization history: Pneumococcal vaccine is not up to date, Flu Vaccine None. - Social history: Smoking status: Patient states former smoker of tobacco. Patient/guardian denies using alcohol, street drugs, IV drugs, marijuana. Screenin:42 Infectious Disease Risk None. Abuse screen: Denies threats or abuse. Nutritional sc1 screening: No deficits noted. Vital Signs: 12:41 BP 172 / 64; Pulse 77; Resp 18; Temp 98.7; Pulse Ox 90% on R/A; sc1 ED Course: 12:34 Patient arrived in ED. ama 12:34 Mervat Nava MD is Private Physician. ama 12:38 Eagle Angela MD is Attending Physician. co 12:39 Swathi Belle RN is Primary Nurse. [facility] 12:39 Triage completed. co1 12:42 Notified ED Physician of patient's arrival and chief complaint. Dr. Angela notified. Arm co1 band placed on Bed in low position Call Light in Reach HOB Elevated Side rails up x2. 12:57 Dressings: Steri strips 1/8 " X 1;. Wound care to laceration located on nose was co1 cleaned with Hibiclens, Patient tolerated well. 12:58 Valuables Remains with patient. co1 13:01 Mervat Nava MD is Referral Physician. co Administered Medications: No medications were administered Outcome: 12:57 Discharged to [facility]. [facility] 12:57 Condition: stable 12:57 Discharge instructions given to patient, Instructed on discharge instructions, follow up and referral plans. Demonstrated understanding of instructions. 13:02 Discharge ordered by . co 13:09 Patient left the ED. [facility] Signatures: Swathi Belle RN RN [facility] Eagle Angela MD MD co Yusuf Elise, Reg Reg ama
--- NOTE | 2017-03-18 13:32 | ER PHYSICIAN DOCUMENTATION ---
Physician Documentation [facility] Name:Juan Pablo Guillermo Age:76 yrs Sex:Male :1940 Arrival Date:03/18/2017 Time:12:32 Bed1 Private MD:Mervat Nava [facility] Disposition: 03/18/17 13:02 Discharged to Home/Self Care. Impression: Open Wound of Nose. - Condition is Good. - Discharge Instructions: FACIAL LACERATION suture tape - LACERATION, Face (suture or tape). - Medical Reconciliation form form. - Follow up: Mervat Nava MD; When: As needed; Reason: Continuance of care. - Problem is new. - Symptoms have improved. HPI: 03/18 12:57 This 76 yrs old Male presents to ER via Private Vehicle with complaints of sc Fall Injury. 12:57 Details of fall: The patient fell from an upright position, while walking. Onset: The sc symptom(s)/episode began/occurred just prior to arrival. Associated injuries: The patient sustained injury to the head, abrasion. Associated signs and symptoms: The patient has no apparent associated signs or symptoms, Loss of consciousness: the patient experienced no loss of consciousness. Severity of symptoms: At their worst the symptoms were mild. Historical: - Allergies: VYTORIN; Crestor; Percocet; Simvastatin; - Home Meds: 1. Potassium Chloride Oral 2. Furosemide Oral 3. Tricor Oral 4. Metformin Oral 5. Warfarin Oral - PMHx: HIGH CHOLESTEROL; DIABETES - NIDDM; Bimalleolar Ankle Fracture - : Right / Closed reduction by MD under Anesthesia (May 08, 2016); ALZHEIMERS; OBESITY; Lumbar Vertebra Fracture w/o Spinal Cord Injury - : 50% Acute L-2 Vertebral Body Compression Fracture (March 15, 2017); - PSHx: PACEMAKER; - Tetanus: refused today. - Ebola Screening: : Patient negative for fever greater than or equal to 101.5 degrees Fahrenheit, and additional compatible Ebola Virus Disease symptoms. Patient denies exposure to infectious person. Patient denies travel to an Ebola-affected area in the 21 days before illness onset. No symptoms or risks identified at this time. . - Immunization history: Pneumococcal vaccine is not up to date, Flu Vaccine None. - Social history: Smoking status: Patient states former smoker of tobacco. Patient/guardian denies using alcohol, street drugs, IV drugs, marijuana. ROS: 12:58 Constitutional: Negative for fever, chills, and weight loss. sc Eyes: Negative for injury, pain, redness, and discharge. ENT: Negative for injury, pain, and discharge. Neck: Negative for injury, pain, and swelling. Cardiovascular: Negative for chest pain, palpitations, and edema. Respiratory: Negative for shortness of breath, cough, wheezing, and pleuritic chest pain. Abdomen/GI: Negative for abdominal pain, nausea, vomiting, diarrhea, and constipation. 12:58 Back: Negative for injury and pain. sc 12:58 MS/extremity: Negative for acute changes. 12:58 Skin: Positive for abrasion(s). Exam: Constitutional: This is a well developed, well nourished patient who is awake, alert, and in no acute distress. Eyes: Pupils equal round and reactive to light, extra-ocular motions intact. Lids and lashes normal. Conjunctiva and sclera are non-icteric and not injected. Cornea within normal limits. Periorbital areas with no swelling, redness, or edema. Neck: Trachea midline, no thyromegaly or masses palpated, and no cervical lymphadenopathy. Supple, full range of motion without nuchal rigidity, or vertebral point tenderness. No meningismus. Chest/axilla: Normal chest wall appearance and motion. Nontender with no deformity. No lesions are appreciated. Cardiovascular: Regular rate and rhythm with a normal S1 and S2. No gallops, murmurs, or rubs. Normal PMI, no JVD. No pulse deficits. Respiratory: Lungs have equal breath sounds bilaterally, clear to auscultation and percussion. No rales, rhonchi or wheezes noted. No increased work of breathing, no retractions or nasal flaring. Abdomen/GI: Soft, non-tender, with normal bowel sounds. No distension or tympany. No guarding or rebound. No evidence of tenderness throughout. Back: No spinal tenderness. No costovertebral tenderness. Full range of motion. 12:58 Skin: Warm, dry with normal turgor. Normal color with no rashes, no lesions, and no sc evidence of cellulitis. 12:58 Head/face: Noted is abrasion(s), of the nose, a laceration(s), that is superficial. 12:58 ENT: Nose: Nasal septum: no septal hematoma appreciated. 13:02 Musculoskeletal/extremity: Exam is negative for acute changes. ne 13:02 Neuro: Exam negative for sc Vital Signs: 12:41 BP 172 / 64; Pulse 77; Resp 18; Temp 98.7; Pulse Ox 90% on R/A; sc1 MDM: 12:38 Patient medically screened. ne 12:59 Differential diagnosis: abrasion, laceration. Data reviewed: vital signs, nurses notes, ne and as a result, I will discharge patient. ED course: low impact on nose against chair, did not hit head, declines ct which seems reasonable. Dispensed Medications: No medications were administered Signatures: Swathi Belle RN RN sc1 Eagle Angela MD MD ne
== END 2017-03-18 13:09 | disposition home or self-care (01) ==
LOC: ER 12:32
DX: S01.21XA Laceration without foreign body of nose, initial encounter (principal); W18.39XA Other fall on same level, initial encounter; Y93.01 Activity, walking, marching and hiking; E11.9 Type 2 diabetes mellitus without complications; Z95.0 Presence of cardiac pacemaker; Z79.01 Long term (current) use of anticoagulants; Z79.899 Other long term (current) drug therapy
CPT/HCPCS: 99283; A0425; A0429